=== PATIENT | male | born 1990 | race Caucasian/White ===

== ENCOUNTER 2024-11-15 08:00 | Outpatient (CLI) | payer OTHER, SELFPAY ==
--- OUTSIDE RECORDS SUMMARY | 2024-11-15 08:06 | XMS_ITS | Clinical Summary ---
Author Organization [facility] Address [address] [place] [address] Care Team Providers Care Lean Process Deployment Consultant Name Role Phone Dipak Aly DO Primary Care Provider [phone] Allergies No known active allergies Medications multivit kzkkfqzn-cigp-K A-calcium (THERA-M) 9 mg iron-400 mcg tabletIndicatio ns:Vitamin Deficiency Prevention Take 1 tablet by mouth daily 30 tablet 3 Active thiamine (VITAMIN B1) 100 mg tabletIndicatio ns:Thiamine Deficiency Take 1 tablet (100 mg total) by mouth daily for 1 dose 1 tablet 3 Active hydrocortisone 2.5 % cream Apply topically 2 (two) times a day for 14 days 30 g 5 Active Active Problems Problem Noted Date Diagnosed Date Alcohol abuse with intoxication 10/03/2022 Alcohol dependence 10/01/2022 Resolved Problems Problem Noted Date Diagnosed Date Resolved Date Alcohol withdrawal syndrome without complication 09/30/2022 10/01/2022 Medical History Medical History Date Comments Adhd EtOH dependence (HCC) Smoker Social History Tobacco Use Types Packs/Day Years Used Date Smoking Tobacco: Every Day Smokeless Tobacco: Never Alcohol Use Standard Drinks/Week Comments Yes 0 (1 standard drink = 0.6 oz pur e alcohol) Social Connection and Isolation Panel [NHANES] A nswer Date Recorded In a typical week, how many times do you talk on the phone with family, friends, or neighbors? Once a week 10/01/2022 How often do you get together with friends or re latives? Once a week 10/01/2022 How often do you attend hindu or anabaptist serv ices? Never 10/01/2022 Do you belong to any clubs o r organizations such as hindu groups, unions, fraternal or athletic groups, or school groups? No 10/01/2022 How often do you attend meet ings of the clubs or organizations you belong to? Never 10/01/2022 Are you , , di vorced, , never , or living with a partner? Never 10/01/2022 Overall Financial Resource Strain (CARDIA) Answe r Date Recorded How hard is it for you to pa y for the very basics like food, housing, medical care, and heating? Not hard at all 10/01/2022 Hunger Vital Sign Answer Date Recorded Within the past 12 months, y ou worried that your food would run out before you got the money to buy more. Never true 10/02/19 23 Within the past 12 months, t he food you bought just didn't last and you didn't have money to get more. Never true 10/01/2022 PRAPARE - Transportation Answer Date Re corded In the past 12 months, has l ack of transportation kept you from medical appointments or from getting medications? No 09/18 In the past 12 months, has l ack of transportation kept you from meetings, work, or from getting things needed for daily living? No 10/01/2022 Housing Stability Vital Sign Answer Khanh e Recorded In the last 12 months, was t here a time when you were not able to pay the mortgage or rent on time? Yes 10/01/2022 In the last 12 months, how many places have you lived? 2 10/01/2022 In the last 12 months, was t here a time when you did not have a steady place to sleep or slept in a jail (including now)? Yes 10/01/2022 Personal Safety Answer Date Recorded Have you ever been in or are you currently in a harmful physical or emotional relationship or is someone making you feel afraid or unsafe? Denies 04/21/2024 Education Answer Date Recorded What is the highest level of school you have completed or the highest degree you have received? 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 Gender Identity Not on file Sexual Orientation Not on file Obstetrics History Last Filed Vital Signs Vital Sign Reading Time Taken Comments Blood Pressure 147/89 04/21/2024 11:51 AM JIG INSPECTOR Pulse 97 04/21/2024 11:51 AM JIG INSPECTOR Temperature 36.8 C (98.2 F) 04/21/2024 11:51 AM JIG INSPECTOR Respiratory Rate 18 04/21/2024 11:51 AM JIG INSPECTOR Oxygen Saturation 100% 04/21/2024 11:51 AM JIG INSPECTOR Inhaled Oxygen Concentration - - Weight 124.7 kg (275 lb) 04/21/2024 11:51 AM JIG INSPECTOR Height 172.7 cm (5' 8) 09/30/2022 11:54 PM CDT Body Mass Index 41.81 09/30/2022 11:54 PM CDT Plan of Treatment Health Maintenance Due Date Last Done Comments Depression Screening 1989 Hepatitis C Screening 1989 Varicella Vaccines (1 of 2 - 13+ 2-dose series) 2002 Hepatitis B Screening 07/03/2007 Regular Well Visit/Exam 18-64 07/03/2007 Pneumococcal vaccine <65 (1 of 2 - PCV) 2008 HPV Vaccines (1 - 3-dose SCDM series) 2016 Influenza Vaccine (#1) 2024 DTaP/Tdap/Td Vaccine (2 - Td or Tdap) 09/20/202806/2018 Insurance [facility] Care Teams Lean Process Deployment Consultant Relationship Specialty Start Date End Date Dipak Aly, [address] [address] PCP - General 11/01/18
--- OUTSIDE RECORDS SUMMARY | 2024-11-15 08:06 | XMS_ITS | Referral Summary ---
Author Organization [facility] Address [address] [place] [address] Care Team Providers Care Solid Waste Disposal Manager Name Role Phone Dipak Aly DO Primary Care Provider [phone] Allergies No known active allergies Medications multivit gcqtxddp-zsli-H A-calcium (THERA-M) 9 mg iron-400 mcg tabletIndicatio [...] Alcohol withdrawal syndrome without complication 09/30/2022 10/01/2022 Social History Tobacco Use Types Packs/Day Years [...] week 10/01/2022 How often do you attend nondenominational or gnosticist serv ices? Never 10/01/2022 Do you belong to any clubs o r organizations such as nondenominational groups, unions, fraternal or athletic groups, or [...] place to sleep or slept in a group home (including now)? 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 Gender Identity Not on file Sexual Orientation Not on file Last Filed Vital Signs Vital Sign Reading Time Taken Comments Blood Pressure 147/89 04/21/2024 11:51 AM PIT CREW SUPPORT WORKER Pulse 97 04/21/2024 11:51 AM PIT CREW SUPPORT WORKER Temperature 36.8 C (98.2 F) 04/21/2024 11:51 AM PIT CREW SUPPORT WORKER Respiratory Rate 18 04/21/2024 11:51 AM PIT CREW SUPPORT WORKER Oxygen Saturation 100% 04/21/2024 11:51 AM PIT CREW SUPPORT WORKER Inhaled Oxygen Concentration - - Weight 124.7 kg (275 lb) 04/21/2024 11:51 AM PIT CREW SUPPORT WORKER Height 172.7 cm (5' 8) 09/30/2022 11:54 PM CDT Body Mass Index 41.81 09/30/2022 11:54 PM CDT Plan of Treatment Not on file Insurance [facility] Care Teams Solid Waste Disposal Manager Relationship Specialty Start Date End Date Dipak Aly, DO [address] [address] [facility] - General 11/01/18
--- OUTSIDE RECORDS SUMMARY | 2024-11-15 08:06 | XMS_ITS | Patient Health Record ---
Author Organization [facility] Address [address] [place] [address] Care Team Providers Care Probate Clerk Name Role Phone Kian Dipak Primary Care Provider Allergies No Known Allergies Results Component Value Reference Range Notes Hemoglobin A1c CLIA Waived Reviewed date:10/25/2024 11:31:27 AM Interpretation: Performing Lab: Notes/Report: Hemoglobin A1c 5.9 4.0 - 6.4 % HIV Screen *HIV 1, 2 Ab, p24 Ag ([id number]) Reviewed date:10/27/2024 08:17:00 AM Interpretation: Performing Lab:[facility], [address] [facility], Phone - [phone], Director - PhDMegan Notes/Report: HIV Ab/p24 Ag Screen Non Reactive Non Reactive HIV-1/HIV-2 antibodies and HIV-1 p24 antigen were NOT detected. There is no laboratory evidence of HIV infection. HIV Negative Hepatitis C Virus Antibody w /Rflx to Quantitative Real-time PCR ([id number]) Reviewed date:10/27/2024 08:17:00 AM Interpretation: Performing Lab:[facility], [address] [facility], Phone - [phone], Director - [facility] Notes/Report: HCV Ab Non Reactive Non Reactive Interpretation: Not infected with HCV unless early or acute infection is suspected (which may be delayed in an immunocompromised individual), or other evidence exists to indicate HCV infection. Hepatitis B Surface Antigen (HBsAg Screen) Reviewed date:10/27/2024 08:17:00 AM Interpretation: Performing Lab:[facility], [address] [place] [address], Phone - [phone], Director - [facility] Notes/Report: HBsAg Screen Negative Negative Lipid Panel* Reviewed date:10/27/2024 08:17:00 AM Interpretation: Performing Lab:[address], Phone - [phone], Director - [facility] Notes/Report: Cholesterol, Total 190 100-199 mg/dL Triglycerides 91 0-149 mg/dL HDL Cholesterol 39 >39 mg/dL VLDL Cholesterol Jonh 17 5-40 mg/dL LDL Chol Calc (NIH) 134 0-99 mg/dL Iron and TIBC* Reviewed date:10/27/2024 08:17:00 AM Interpretation: Performing Lab:[address], Phone - [phone], Director - [facility] Notes/Report: Iron Bind.Cap.(TIBC) 423 250-450 ug/dL UIBC 375 111-343 ug/dL Iron 48 38-169 ug/dL Iron Saturation 11 15-55 % Vitamin B12 and Folate Reviewed date:10/27/2024 08:16:59 AM Interpretation: Performing Lab:[address], Phone - [phone], Director - [facility] Notes/Report: Vitamin B12 0374 070-5927 pg/mL Folate (Folic Acid), Serum 9.6 >3.0 ng/mL A serum folate concentration of less than 3.1 ng/mL is considered to represent clinical deficiency. CBC With Differential/Platel et* Reviewed date:10/27/2024 08:16:59 AM Interpretation: Performing Lab:[address], Phone - [phone], Director - [facility] Notes/Report: WBC 9.9 3.4-10.8 x10E3/uL RBC 5.50 4.14-5.80 x10E6/uL Hemoglobin 14.8 13.0-17.7 g/dL Hematocrit 47.9 37.5-51.0 % MCV 87 79-97 fL MCH 26.9 26.6-33.0 pg MCHC 30.9 31.5-35.7 g/dL RDW 14.6 11.6-15.4 % Platelets 357 150-450 x10E3/uL Neutrophils 55 Not Estab. % Lymphs 34 Not Estab. % Monocytes 6 Not Estab. % Eos 4 Not Estab. % Basos 1 Not Estab. % Neutrophils (Absolute) 5.5 1.4-7.0 x10E3/uL Lymphs (Absolute) 3.3 0.7-3.1 x10E3/uL Monocytes(Absolute) 0.6 0.1-0.9 x10E3/uL Eos (Absolute) 0.4 0.0-0.4 x10E3/uL Baso (Absolute) 0.1 0.0-0.2 x10E3/uL Immature Granulocytes 0 Not Estab. % Immature Grans (Abs) 0.0 0.0-0.1 x10E3/uL TSH Rfx on Abnormal to Free T4 Reviewed date:10/27/2024 08:16:59 AM Interpretation: Performing Lab:[facility] [place], [address] [facility], Phone - [phone], Director - Leah Notes/Report: TSH 1.010 0.450-4.500 uIU/mL CMP 14 Comprehensive Metabol ic Panel* Reviewed date:10/27/2024 08:16:59 AM Interpretation: Performing Lab:[facility] [place], [address] [facility], Phone - [phone], Director - [facility] Notes/Report: Glucose 69 70-99 mg/dL BUN 12 6-20 mg/dL Creatinine 0.81 0.76-1.27 mg/dL eGFR 118 >59 mL/min/1.73 BUN/Creatinine Ratio 15 9-20 Sodium 138 134-144 mmol/L Potassium 4.9 3.5-5.2 mmol/L Chloride 97 96-106 mmol/L Carbon Dioxide, Total 24 20-29 mmol/L Calcium 8.9 8.7-10.2 mg/dL Protein, Total 6.7 6.0-8.5 g/dL Albumin 4.4 4.1-5.1 g/dL Globulin, Total 2.3 1.5-4.5 g/dL Bilirubin, Total 0.3 0.0-1.2 mg/dL Alkaline Phosphatase 87 44-121 IU/L AST (SGOT) 29 0-40 IU/L ALT (SGPT) 33 0-44 IU/L Reason For Referral Reason HOME SLEEP STUDY WIT H REFLEX TO SPLIT-NIGHT PSG IF ABNL, EPWORTH 16 Diagnosis 1 Sleep apnea in adult (G47.33) Referral Organization [facility] Referring Provider First Name Dipak Referring Provider Last Name Kian Referring Provider Speciality Internal M edicine Referred Provider Specialty Sleep Medici ne General Notes Chiynere oMran RN 12/2024 10:26:57 AM > referral faxed letter mailed Clinical Notes [facility] , [facility] phone [phone] Referral Priority Routine Medications Medication SIG (Take, Route, Frequency, Duration) Notes Start Date End Date Status Topiramate 25 MG 1 tablet with PM carlos l for 2 weeks, then two tablet with PM meal Orally directed; Duration: 28 days 10/25/2024 Active PROzac 20 MG 1 capsule Orally Onc e a day; Duration: 30 days 01/17/2022 Not-Taking Melatonin 1 MG 1 tablet in the evening Orally Once a day 4mg total Not-Taking Multivitamin - 1 tablet Orally Once a day; Duration: 30 day(s) Not-Taking Mirtazapine 15 MG 1 tablet at bedtime Orally Once a day; Duration: 30 days 11/22/2021 Not-Taking hydrOXYzine HCl 25 MG 1-2 tabs as needed Orally every 4 hrs; Duration: 30 days Not-Taking Social History Tobacco Use: Social History Observation Description Date Details (start date - stop date) Current Smoker NA - NA Sex Assigned At : Social History Observation Description Sex Assigned At Male Tobacco Control (Standard) Question Answer Notes Tobacco use: Current smoker Additional Findings: Tobacco user Heavy cigarett e smoker (20-39 cigs/day) Problems Problem Type SNOMED Code ICD Code Onset Dates Problem Status W/U Status Risk Notes Problem Tobacco user (908377691) Nicotine dependence, unspecified, uncomplicated (F17.200) 2 Active confirmed Problem Tobacco dependence (64496646) Tobacco dependence (F17.200) 2 Active confirmed Problem Major depressive disorder (984296732) Major depressive disorder (F32.9) 2 Active confirmed Problem Obstructive sleep apnea syndrome (35953929) Sleep apnea in adult (G47.33) Active confirmed Problem Physical examination, complete (83609852) Physical exam (Z00.00) Active confirmed Problem Alcohol use disorder (2846596749) Alcohol use disorder (F10.99) 2 Active confirmed Problem Obesity (866256820) Obesity (BMI 30-39.9) (E66.9) Active confirmed Problem Tobacco use (554361014) Tobacco use disorder (F17.200) 2 Active confirmed Problem Obesity (046132921) Obesity due to excess calories with serious comorbidity, unspecified classification (E66.09) Active confirmed Vital Signs Heart Rate 91 /min 10/25/2024 Respiratory Rate 16 /min 10/25/2024 Blood pressure diastolic 82 mm Hg 10/25/2024 Oximetry 98 % 10/25/2024 Height 68 in 10/25/2024 Blood pressure systolic 128 mm Hg 10/25/2024 Weight 289.2 lbs 10/25/2024 BMI 43.97 kg/m2 10/25/2024 Encounters Encounter Location Date Provider Diagnosis [address] [address] 10/25/2024 Dipak Langston Impaired glucose tolerance R73.02 ; Sleep apnea in adult G47.33 ; Fatigue R53.83 ; Obesity due to excess calories with serious comorbidity, unspecified classification E66.09 ; Alcohol use disorder F10.99 ; Lipid screening Z13.220 ; Exposure to potential infection Z20.9 and Major depressive disorder F32.9 Assessments Encounter Date Diagnosis (ICD Code) Assessment Notes Treatment Notes Treatment Clinical Notes Section Notes 10/25/2024 Sleep apnea in adult (ICD-10 - G47.33) 10/25/2024 Impaired glucose tolerance (ICD-10 - R73.02) 10/25/2024 Fatigue (ICD-10 - R53.83) 10/25/2024 Obesity due to excess calories with serious comorbidity, unspecified classification (ICD-10 - E66.09) 10/25/2024 Alcohol use disorder (ICD-10 - F10.99) ABSTAINING 10/25/2024 Lipid screening (ICD-10 - Z13.220) 10/25/2024 Exposure to potential infection (ICD-10 - Z20.9) 10/25/2024 Major depressive disorder (ICD-10 - F32.9) Plan Of Treatment No Information Insurance Providers Payer Name Payer Address Payer Phone Subscriber Number Group Number Insured Name Patient Relationship to Insured Coverage Start Date Coverage End Date [employer] [facility] Attn Claims Department [address] [place] [address] [phone] [id number] Villa Smith Self - patient is the insured 1 Arden Reed Attn Claims Department [address] [place] [address] [phone] [id number] Villa Smith Self - patient is the insured 2 Medications Administered Medication Instructions Date of Administration Dosage Notes Vivitrol 10/08/2020 380 mg Pt tolerated i njection well. Pt voiced no questions or concerns. Medical (General) History Medical History History ICD Code AUD Surgical History Surgery Date(Month/Year) Hospitalization History Reason Date(Month/Year) double pneumonia 2009
--- NOTE | 2025-02-14 14:41 | P.SLEEP_ITS ---
Sleep Study - Home Unattended Date of Study: 11/15/24 Ordering Provider: Dipak Langston MD Interpreting Provider: Ann Hensley, DO Home Sleep Study Type: Watch PAT Height: 1.73 m Weight: 129.274 kg Body Mass Index: 43.3 Neck Circumference (inches): 18 [place]: 19 Reason for Sleep Study Excessive daytime sleepiness Sleep History The patient is a 34-year-old male that had a sleep study ordered by his primary care physician for evaluation of sleep apnea. He admits to snoring loudly, excessive daytime sleepiness, witnessed apneas, trouble falling asleep, trouble staying asleep and unwanted behaviors during sleep. He denies having trouble falling asleep. He does have difficulty returning to sleep if he wakes up throughout the night. He denies any hypnotic or sedative use. He denies feeling anxious about sleep. He does feel tired or sleepy during the day. He does feel tired in the morning. He does have the urge to fall asleep during the day. He denies feeling drowsy while driving. He does choke or gasp at night. He does have trouble breathing on his back. He does have morning headaches. He does have a dry or sore mouth / throat in the morning. He denies nocturnal heartburn. He urinates more than 3 times per night. He denies cataplexy. He admits to sleep paralysis. He does have hypnopompic/hypnagogic hallucinations. He denies clenching or grinding his teeth. He does kick or jerk his legs excessively. He does have a restless feeling in his legs that causes an urge to move his legs. It gets worse with rest but better with activity. It is present mainly in the evening or at night time and it does cause a disturbance in his sleep. He goes to bed at 10:00 p.m. on work days and at 10:30 p.m. on his days off. It takes him 1 hour to fall asleep. Gets 3 hours of sleep per night. His sleep is not restorative. He denies taking any planned naps. He does act out his dreams. He denies sleep walking. Consumes 3-4 cups of caffeinated beverage per day. He smokes 6-20 cigarettes per day. He denies alcohol consumption. He exercises 5-7 nights per week. Sleep Procedure The sleep study was completed using [employer] Lane[employer] a technically adequate device with seven channels: peripheral arterial tone, actigraphy, body position, snore, respiratory movement, pulse oximetry, sleep staging, and heart rate. Prior to using the device, the patient received verbal and written instructions for its application and was provided with the help desk phone number for additional telephonic instruction with 24-hour availability of qualified personnel to answer questions. The study was scored using CMS guidelines. Sleep Architecture The total recording time is 4 hrs, 50 min. The total sleep time is 4 hrs, 30 min. Sleep latency is 5 minutes. REM latency is 60 minutes. The patient had 2 episodes of waking. Sleep architecture shows 0.0% deep sleep, 74.9% light sleep, and (as % Total Sleep Time) showed NREM (Light 74.9%; Deep 0.0%), and a 25.1% stage REM. The patient spent 49.8% of total sleep time in the supine position. Sleep efficiency was 93.10. Respiratory Analysis The overall AHI (pAHI 4%:) is 114.1. The overall AHI (pAHI 3%:) is 114.6. The central AHI is 0.5. The AHI was 121.0 in NREM and 95.2 in REM sleep. The AHI was 112.2 in Supine and 119.9 in Non-supine sleep. Percent of Moustapha Ashby respirations is 0.0. Oximetry Data The oxygen desaturation index (JOSE C 4%:) is 104.3. The mean saturation is 83%, and the lowest saturation is 51%. Time spent with saturation < 88% is 154.1 minutes. Snoring Profile Snoring average intensity is 49 dB. The patient snored above 45 decibels for 132.4 minutes, 48.9% of sleep time. Cardiac Profile The average pulse rate is 79 beats per minutes. The lowest pulse rate is 47 bpm. The highest pulse rate reported is 124 bpm. Suspected Afib total duration is 0:01:32, (h:m:sec). The longest Afibevent duration is 0:00:47. Premature beats occur 0.4 per minute. Assessment and Plan Assessment and Plan (1) BEVERLY (obstructive sleep apnea): Code(s): G47.33 - Obstructive sleep apnea (adult) (pediatric) Status: Acute Assessment and Plan: The patient had an overall AHI of 114.1 with desaturation down to 51%. This is consistent with extremely severe sleep apnea. The patient spent 154 minutes with an oxygen saturation less than 88%. Due to the severity of the patient's sleep apnea and amount of time spent hypoxemic, he is not a candidate for AutoPAP. I recommend that the patient have a CPAP Titration study with the use of a hypnotic to ensure we obtain enough sleep data and find an optimal pressure setting. The patient's sleep history is highly suggestive of Restless Leg Syndrome. I recommend that the patient have a serum ferritin drawn for evaluation of iron deficiency anemia. If the patient has a serum ferritin less than 75 ng/mL, I recommend starting a daily iron supplement and a Vitamin C supplement for better absorption. If the serum ferritin is greater than 75 ng/mL, I recommend starting a dopamine agonist and titrating the dose until symptoms resolve. There are nonpharmacological methods to treat limb movements including daily exercise, stretching calf muscles before bed, avoiding excessive amounts of caffeine and alcohol, vitamin B supplementation, magnesium lotion massaged into legs before bed, and use of a weighted blanket. Data The data obtained during this sleep study is adequate for interpretation. Certification This sleep study has been reviewed by a board certified sleep medicine physician.
[2025-02-14 14:49] VITALS: BMI 43.3
== END 2025-01-31 14:33 | disposition home or self-care (01) ==
LOC: ANHCSM 08:01
PROVIDERS: PCP Internal Medicine; Visit Provider Internal Medicine
DX: G47.33 Obstructive sleep apnea (adult) (pediatric) (principal)
CPT/HCPCS: 95800